=== PATIENT | female | born 1945 | race Caucasian/White ===

== ENCOUNTER → 2023-06-23 10:29 | Outpatient (CLI) | payer MEDICARE, SELFPAY | PROVIDERS: PCP Family Medicine; Visit Provider Physician Assistant | DX: S81.802A Unspecified open wound, left lower leg, initial encounter (principal) | CPT/HCPCS: 87070; 87075; 87077; 87147; 87186; 87205 ==

== ENCOUNTER → 2023-07-05 16:12 | Outpatient (CLI) | payer MEDICARE, SELFPAY | PROVIDERS: PCP Family Medicine; Visit Provider Physician Assistant | DX: S81.802A Unspecified open wound, left lower leg, initial encounter (principal) | CPT/HCPCS: 87070; 87075; 87205 ==

== ENCOUNTER → 2023-07-08 08:36 | Outpatient (CLI) | payer MEDICARE, SELFPAY | PROVIDERS: PCP Family Medicine; Referring Provider Physician Assistant; Visit Provider Physician Assistant | DX: L97.929 Non-pressure chronic ulcer of unspecified part of left lower leg with unspecified severity (principal); Z85.828 Personal history of other malignant neoplasm of skin; S81.802A Unspecified open wound, left lower leg, initial encounter; L53.9 Erythematous condition, unspecified; I10 Essential (primary) hypertension; L63.9 Alopecia areata, unspecified | CPT/HCPCS: 11042; 99204; 99213 ==

== ENCOUNTER → 2023-07-09 08:47 | Outpatient (CLI) | payer MEDICARE, SELFPAY ==
[2023-07-09 10:01] LABS: HEMOLYSIS < 15 (0-50); Iron 147 ug/dL (37-170)
[2023-07-09 10:12] LABS: Percent Iron Saturation 47 % (15-50); Total Iron Binding Capacity 313 ug/dL (265-497); Transferrin 275 mg/dL (206-381)
[2023-07-09 10:15] LABS: Rheumatoid Factor < 8.6 IU/mL (<12.0)
[2023-07-13 15:08] LABS: ANA Screen, IFA Negative (.)
[2023-07-13 16:40] LABS: Antimyeloperoxidase Antibodies <0.2 units (0.0-0.9); Antiproteinase 3 Antibodies <0.2 units (0.0-0.9); Cytoplasmic C-ANCA <1:20 titer (Neg:<1:20); Perinuclear P-ANCA <1:20 titer (Neg:<1:20)
== END ==
PROVIDERS: PCP Family Medicine; Referring Provider Family Medicine; Visit Provider Family Medicine
DX: L98.9 Disorder of the skin and subcutaneous tissue, unspecified (principal); R23.3 Spontaneous ecchymoses
CPT/HCPCS: 36415; 83540; 83550; 86038; 86256; 86430

== ENCOUNTER → 2023-07-15 09:07 | Outpatient (CLI) | payer MEDICARE, SELFPAY ==
--- NOTE | 2023-07-15 09:08 | DI.US.S_ITS ---
PROCEDURE: US ARTERIAL DUPLEX LE BI INDICATIONS: CHRONIC NON-HEALING WOUND TECHNIQUE: Color and pulse Doppler interrogation was performed of both lower extremity arterial systems, with image documentation. COMPARISON: None. FINDINGS: Right lower extremity: Common femoral artery: 240 cm/sec, with triphasic flow. Deep femoral artery: 107 cm/sec, with biphasic flow. Proximal superficial femoral artery: 138 cm/sec, with biphasic flow. Mid superficial femoral artery: 132 cm/sec, with biphasic flow. Distal superficial femoral artery: 98 cm/sec, with biphasic flow. Popliteal artery: 77 cm/sec, with biphasic flow. Posterior tibial artery: 67 cm/sec, with biphasic flow. Anterior tibial artery/dorsalis pedis: 85 cm/sec, with biphasic flow. Saleh-scale imaging description: Mild diffuse plaque. Left lower extremity: Common femoral artery: 218 cm/sec, with biphasic flow. Deep femoral artery: 170 cm/sec, with monophasic flow. Proximal superficial femoral artery: 134 cm/sec, with monophasic flow. Mid superficial femoral artery: 119 cm/sec, with biphasic flow. Distal superficial femoral artery: 93 cm/sec, with biphasic flow. Popliteal artery: 57 cm/sec, with biphasic flow. Posterior tibial artery: 94 cm/sec, with biphasic flow. Anterior tibial artery/dorsalis pedis: 39 cm/sec, with biphasic flow. Saleh-scale imaging description: Mild diffuse plaque. IMPRESSION: Mild diffuse plaque. No significant stenosis by imaging or velocity/waveform criteria. Dictated by: Jordan Harris M.D. on 07/15/2023 at 15:08 Approved by: Jordan Harris M.D. on 07/15/2023 at 15:11
== END ==
PROVIDERS: PCP Family Medicine; Referring Provider Physician Assistant; Visit Provider Physician Assistant
DX: S81.802A Unspecified open wound, left lower leg, initial encounter (principal); I70.203 Unspecified atherosclerosis of native arteries of extremities, bilateral legs
CPT/HCPCS: 93925

== ENCOUNTER → 2023-07-15 11:44 | Outpatient (CLI) | payer MEDICARE, SELFPAY | PROVIDERS: PCP Family Medicine; Referring Provider Physician Assistant; Visit Provider Physician Assistant | DX: S81.802A Unspecified open wound, left lower leg, initial encounter (principal); I70.203 Unspecified atherosclerosis of native arteries of extremities, bilateral legs; L97.929 Non-pressure chronic ulcer of unspecified part of left lower leg with unspecified severity; Z85.828 Personal history of other malignant neoplasm of skin; L53.9 Erythematous condition, unspecified; I10 Essential (primary) hypertension; F41.9 Anxiety disorder, unspecified; L63.9 Alopecia areata, unspecified; L20.83 Infantile (acute) (chronic) eczema | CPT/HCPCS: 11042; 93925; 99214 ==

== ENCOUNTER → 2023-07-22 10:53 | Outpatient (CLI) | payer MEDICARE, SELFPAY | LOC: WC 10:55 | PROVIDERS: PCP Family Medicine; Referring Provider Physician Assistant; Visit Provider Physician Assistant | DX: S81.802A Unspecified open wound, left lower leg, initial encounter (principal); I10 Essential (primary) hypertension | CPT/HCPCS: 97597; 99214 ==

== ENCOUNTER → 2023-07-29 13:04 | Outpatient (CLI) | payer MEDICARE, SELFPAY | PROVIDERS: PCP Family Medicine; Referring Provider Physician Assistant; Visit Provider Physician Assistant | DX: S81.802A Unspecified open wound, left lower leg, initial encounter (principal); I10 Essential (primary) hypertension; L53.9 Erythematous condition, unspecified | CPT/HCPCS: 11042; 99214 ==

== ENCOUNTER → 2023-08-12 14:03 | Outpatient (CLI) | payer MEDICARE, SELFPAY | LOC: WC 14:05 | PROVIDERS: PCP Family Medicine; Referring Provider Physician Assistant; Visit Provider Physician Assistant | DX: S81.802A Unspecified open wound, left lower leg, initial encounter (principal); L08.89 Other specified local infections of the skin and subcutaneous tissue; L53.9 Erythematous condition, unspecified; I10 Essential (primary) hypertension | CPT/HCPCS: 11042; 87070; 87075; 87077; 87147; 87186; 87205; 99213; 99214 ==

== ENCOUNTER → 2023-08-19 14:13 | Outpatient (CLI) | payer MEDICARE, SELFPAY | LOC: WC 14:22 | PROVIDERS: PCP Family Medicine; Referring Provider Physician Assistant; Visit Provider Physician Assistant | DX: S81.802D Unspecified open wound, left lower leg, subsequent encounter (principal); I10 Essential (primary) hypertension | CPT/HCPCS: 99212; 99213 ==

== ENCOUNTER → 2023-08-26 15:44 | Outpatient (CLI) | payer MEDICARE, SELFPAY | PROVIDERS: PCP Family Medicine; Referring Provider Physician Assistant; Visit Provider Surgery | DX: S81.802D Unspecified open wound, left lower leg, subsequent encounter (principal) | CPT/HCPCS: 99212 ==

== ENCOUNTER 2023-12-13 13:45 | Outpatient (RCR) | payer MEDICARE, SELFPAY ==
--- NOTE | 2023-12-06 12:00 | PT.OIE ---
Current Diagnoses Scoliosis, unspecified (12/06/23) Past Medical History (Last Reviewed 05/10/23 @ 17:55 by Veto Hemphill DO) Actinic keratosis Alopecia Anxiety Asthma Cataracts, bilateral Chicken pox Colon polyps Eczema Foot pain Fractures Hypertension Measles Osteopenia Osteoporosis Recurrent sinusitis Scoliosis Skin cancer Tinnitus Vertigo Vision disorder Past Surgical History (Last Reviewed 05/10/23 @ 17:55 by Veto Hemphill DO) Anesthesia H/O right wrist surgery History of breast biopsy History of cataract removal with insertion of prosthetic lens History of tonsillectomy Status post Mohs surgery Visit Care Team Role Provider Type Toshia Moon DO Attending Provider Physician Family Provider Primary Care Provider Referring Provider Specialty: [facility] Practice Address: [address] [place] [address], [address], [facility] Email: [email or web address] Physical Therapy Initial Evaluation PT-OP-A Visit Information Start: 12/06/23 14:57 Freq: Status: Active Protocol: Document 12/06/23 11:15 DCW (Rec: 12/06/23 15:05 DCW [id number]) Out-Patient Physical Therapy Visit Information Visit Information Visit Type Initial Evaluation Visit Start Time 11:15 Visit Stop Time 12:00 Visit Number 1 Number of DIAMOND WHEEL EDGER Visits 0 Evaluation Information Evaluation Date 12/06/23 PT-OP-B Current Condition Start: 12/06/23 14:57 Freq: Status: Active Protocol: Document 12/06/23 11:15 DCW (Rec: 12/07/23 10:21 DCW [id number]) Current Condition History of Current Condition Current Complaints Low/mid back tightness secondary to scoliosis History of Current Condition Pt is a 78 year old female presenting with a long- standing history of back pain secondary to scoliosis. Pt admits that unless she is actively thinking about it, she will begin to lean to the right, especially when she is stressed and gets tight and sore. Pt has had exercises to help in the past, but over the years has lost track of her program and forgets to do them . Pt also admits she is worried that her curvature will worsen as she ages. Typically will wake up with increased pain, especially if she sleeps on her left side. PT-OP-C Subjective Start: 12/06/23 14:57 Freq: Status: Active Protocol: Document 12/06/23 11:15 DCW (Rec: 12/06/23 15:05 DCW [id number]) OP-PT Subjective Patient Comments Patient Comments I'm almost 79, and I used to run marathons. I'm used to everything hurting all the time. Patient Questionnaires Oswestry Low Back Index Oswestry Score 1250 = 24% PT-OP-F Manual Assessment Start: 12/06/23 14:57 Freq: Status: Active Protocol: Document 12/06/23 11:15 DCW (Rec: 12/06/23 15:05 DCW [id number]) Manual Assessments Soft Tissue Assessment Soft Tissue Mobility Assessment right lumbar paraspinal, left thoracic paraspinal tightness PT-OP-J Posture/Palpation/Skin Start: 12/06/23 14:57 Freq: Status: Active Protocol: Document 12/06/23 11:15 DCW (Rec: 12/06/23 15:05 DCW [id number]) Posture Evaluation Position Sitting Evaluation View Posterior T-Spine Posture Fixed Scoliosis on (L) L-Spine Posture Fixed Scoliosis on (R) PT-OP-K Range of Motion Start: 12/06/23 14:57 Freq: Status: Active Protocol: Document 12/06/23 11:15 DCW (Rec: 12/06/23 15:05 DCW [id number]) Lumbar Spine Range of Motion Lumbar Spine Active Degrees Testing Position Standing Flexion 35 Extension 5 Lateral Flexion Left 62 Lateral Flexion Right 56 ROM Limitations Bony Restriction Comments Lateral flexion measured in cm from floor to fingertips PT-OP-Q Treatments Start: 12/06/23 14:57 Freq: Status: Active Protocol: Document 12/06/23 11:15 DCW (Rec: 12/06/23 15:05 DCW [id number]) Therapeutic Exercises Sidelying Exercises Open Book Sidelying Exercise Name Open Book Comments HEP Sitting Exercises Trunk Flexion Sitting Exercise Name Seated Trunk Flexion Comments HEP Standing Exercises Pallof Press Standing Exercise Name Pallof Press Side bilateral Resistance Lv 2 Comments HEP PT-OP-T Assessment and Plan Start: 12/06/23 14:57 Freq: Status: Active Protocol: Document 12/06/23 11:15 DCW (Rec: 12/07/23 10:21 DCW [id number]) Physical Therapy Assessment Rehab Potential Rehabilitation Potential Good Evaluation Complexity Number of Personal Factors/Comorbidities 3 or More Number of Body Systems Impaired 3 Clinical Presentation at Evaluation Evolving Impairments Impairments Functional Activities, Functional Mobility,Pain, Posture,ROM,Strength,Tone Goals Two Impairment Lumbar flexion limited to 35? Skilled Nursing Goal (LTG) Pt to exhibit improved lumbar flexion by at least 15? to 50? in order to demonstrate improved flexibility and increased functional mobility LTG Duration 02/06/24 One Impairment Pt does not have an appropriate home exercise program Short Term Goal (STG) Pt to be independent and compliant with an appropriate HEP STG Duration 01/07/24 Assessment Summary Assessment Pt presents with signs and symptoms consistent with referring diagnosis of scoliosis. Scoliotic S- curvature results in limitation in thoracolumbar ROM, increased muscle tone/ muscle weakness, core weakness , and decreased tolerance to standing secondary to soreness . Pt will likely benefit from skilled therapeutic intervention focusing on getting a regular routine focusing on improving flexibility, increasing core strength, and improving activity/standing tolerance. Physical Therapy Plan Frequency and Duration Frequency of Treatment 2x/Week Plan of Care Start Date 12/06/23 Plan of Care End Date 02/05/24 Therapeutic Interventions Therapeutic Interventions Home Exercise Program,Joint Mobilizations,Manual Therapy, Neuromuscular Re-education, Patient/Caregiver Education, Self-Care/Home Management,Soft Tissue Mobilization, Therapeutic Activities, Therapeutic Exercises Modalities Cold Pack/Ice Massage,Electric Stimulation,Hot Packs, Ultrasound Next Visit Focus/Plan Next Note Type Treatment Note Next Visit Plan Back/core strengthening, flexibility
--- NOTE | 2023-12-06 12:00 | PT.OPPOC ---
Physical, Occupational & Speech Therapy At [facility] Current Diagnoses Scoliosis, unspecified (12/06/23) Visit Care Team Role Provider Type Toshia Moon DO Attending Provider Physician Family Provider Primary Care Provider Referring Provider Specialty: Family Practice Address: [address] [place] [address], [address], [facility] Email: [email or web address] Plan Of Care PT-OP-T Assessment and Plan Start: 12/06/23 14:57 Freq: Status: Active Protocol: Document 12/06/23 11:15 DCW (Rec: 12/07/23 10:21 DCW [id number]) Physical Therapy Assessment Rehab Potential Rehabilitation Potential Good Evaluation Complexity Number of Personal Factors/Comorbidities 3 or More Number of Body Systems Impaired 3 Clinical Presentation at Evaluation Evolving Impairments Impairments Functional Activities, Functional Mobility,Pain, Posture,ROM,Strength,Tone Goals Two Impairment Lumbar flexion limited to 35? Coding Specialist Home Health Goal (LTG) Pt to exhibit improved lumbar flexion by at least 15? to 50? in order to demonstrate improved flexibility and increased functional mobility LTG Duration 02/06/24 One Impairment Pt does not have an appropriate home exercise program Short Term Goal (STG) Pt to be independent and compliant with an appropriate HEP STG Duration 01/07/24 Assessment Summary Assessment Pt presents with signs and symptoms consistent with referring diagnosis of scoliosis. Scoliotic S- curvature results in limitation in thoracolumbar ROM, increased muscle tone/ muscle weakness, core weakness , and decreased tolerance to standing secondary to soreness . Pt will likely benefit from skilled therapeutic intervention focusing on getting a regular routine focusing on improving flexibility, increasing core strength, and improving activity/standing tolerance. Physical Therapy Plan Frequency and Duration Frequency of Treatment 2x/Week Plan of Care Start Date 12/06/23 Plan of Care End Date 02/05/24 Therapeutic Interventions Therapeutic Interventions Home Exercise Program,Joint Mobilizations,Manual Therapy, Neuromuscular Re-education, Patient/Caregiver Education, Self-Care/Home Management,Soft Tissue Mobilization, Therapeutic Activities, Therapeutic Exercises Modalities Cold Pack/Ice Massage,Electric Stimulation,Hot Packs, Ultrasound Next Visit Focus/Plan Next Note Type Treatment Note Next Visit Plan Back/core strengthening, flexibility Plan of Care Dates Plan of Care Start Date 12/06/23 Plan of Care End Date 02/05/24 Electronically Signed by: Jose Luis Prince, PT 12/07/23 1022 If you are in agreement with this Plan of Care, please return a signed and dated copy. I have reviewed this Plan of Care and certify that the skilled therapy services above are required to meet the patient?s needs. Physician Signature Date Printed Name and Credentials Clinical Instructor Signature Printed Name and Credentials
--- NOTE | 2023-12-08 16:01 | PT.OTN ---
Current Diagnoses Scoliosis, unspecified (12/08/23) Physical Therapy Treatment Note PT-OP-A Visit Information Start: 12/06/23 14:57 Freq: Status: Active Protocol: Document 12/08/23 15:15 DCW (Rec: 12/08/23 16:01 DCW [id number]) Out-Patient Physical Therapy Visit Information Visit Information Visit Type Treatment Note Visit Start Time 15:15 Visit Stop Time 16:00 Visit Number 2 Number of VOCAL MUSIC TEACHER Visits 0 Evaluation Information Evaluation Date 12/06/23 PT-OP-B Current Condition Start: 12/06/23 14:57 Freq: Status: Active Protocol: Document 12/06/23 11:15 DCW (Rec: 12/07/23 10:21 DCW [id number]) Current Condition History of Current Condition Current Complaints Low/mid back tightness secondary to scoliosis History of Current Condition Pt is a 78 year old female presenting with a long- standing history of back pain secondary to scoliosis. Pt admits that unless she is actively thinking about it, she will begin to lean to the right, especially when she is stressed and gets tight and sore. Pt has had exercises to help in the past, but over the years has lost track of her program and forgets to do them . Pt also admits she is worried that her curvature will worsen as she ages. Typically will wake up with increased pain, especially if she sleeps on her left side. PT-OP-C Subjective Start: 12/06/23 14:57 Freq: Status: Active Protocol: Document 12/08/23 15:15 DCW (Rec: 12/08/23 16:01 DCW [id number]) OP-PT Subjective Patient Comments Patient Comments I had a good soreness after doing those exercises. PT-OP-F Manual Assessment Start: 12/06/23 14:57 Freq: Status: Active Protocol: Document 12/06/23 11:15 DCW (Rec: 12/06/23 15:05 DCW [id number]) Manual Assessments Soft Tissue Assessment Soft Tissue Mobility Assessment right lumbar paraspinal, left thoracic paraspinal tightness PT-OP-J Posture/Palpation/Skin Start: 12/06/23 14:57 Freq: Status: Active Protocol: Document 12/06/23 11:15 DCW (Rec: 12/06/23 15:05 DCW [id number]) Posture Evaluation Position Sitting Evaluation View Posterior T-Spine Posture Fixed Scoliosis on (L) L-Spine Posture Fixed Scoliosis on (R) PT-OP-K Range of Motion Start: 12/06/23 14:57 Freq: Status: Active Protocol: Document 12/06/23 11:15 DCW (Rec: 12/06/23 15:05 DCW [id number]) Lumbar Spine Range of Motion Lumbar Spine Active Degrees Testing Position Standing Flexion 35 Extension 5 Lateral Flexion Left 62 Lateral Flexion Right 56 ROM Limitations Bony Restriction Comments Lateral flexion measured in cm from floor to fingertips PT-OP-Q Treatments Start: 12/06/23 14:57 Freq: Status: Active Protocol: Document 12/08/23 15:15 DCW (Rec: 12/08/23 16:01 DCW [id number]) Gym Equipment Cable Column (Body Solid) Trunk Ext Details Trunk Extension Resistance 10# Therapeutic Ball Pelvic Circles Exercise Details Pelvic tilts/circles Ball Size/Color Green - 65 cm Body Position Sitting Therapeutic Exercises Standing Exercises Hip Hiking Standing Exercise Name Hip Hiking Side bilateral Equipment Used 6 step RDL Standing Exercise Name RDL Equipment Used PVC Self-Care/Home Management Treatment Education Other Education Expectations for treatment, discussion of body mechanics and exercise form, HEP compliance PT-OP-T Assessment and Plan Start: 12/06/23 14:57 Freq: Status: Active Protocol: Document 12/08/23 15:15 DCW (Rec: 12/08/23 16:01 DCW [id number]) Physical Therapy Assessment Impairments Impairments Functional Activities, Functional Mobility,Pain, Posture,ROM,Strength,Tone Goals Two Impairment Lumbar flexion limited to 35? Usp Goal (LTG) Pt to exhibit improved lumbar flexion by at least 15? to 50? in order to demonstrate improved flexibility and increased functional mobility LTG Duration 02/06/24 One Impairment Pt does not have an appropriate home exercise program Short Term Goal (STG) Pt to be independent and compliant with an appropriate HEP STG Duration 01/07/24 Assessment Summary Assessment Pt had many questions, focused on increasing lumbar/pelvic mobility as tolerated, postural improvement. Work on core and hip strengthening, potentially add STM/ flexibility. Physical Therapy Plan Frequency and Duration Frequency of Treatment 2x/Week Plan of Care Start Date 12/06/23 Plan of Care End Date 02/05/24 Therapeutic Interventions Therapeutic Interventions Home Exercise Program,Joint Mobilizations,Manual Therapy, Neuromuscular Re-education, Patient/Caregiver Education, Self-Care/Home Management,Soft Tissue Mobilization, Therapeutic Activities, Therapeutic Exercises Modalities Cold Pack/Ice Massage,Electric Stimulation,Hot Packs, Ultrasound Next Visit Focus/Plan Next Note Type Treatment Note Next Visit Plan Back/core strengthening, flexibility
--- NOTE | 2023-12-13 14:20 | PT.OTN ---
Current Diagnoses Scoliosis, unspecified (12/13/23) Physical Therapy Treatment Note PT-OP-A Visit Information Start: 12/06/23 14:57 Freq: Status: Active Protocol: Document 12/13/23 13:45 DCW (Rec: 12/13/23 14:20 DCW [id number]) Out-Patient Physical Therapy Visit Information Visit Information Visit Type Discharge Summary Visit Start Time 13:45 Visit Stop Time 14:15 Visit Number 3 Number of NEON SIGN WORKER Visits 0 Evaluation Information Evaluation Date 12/06/23 PT-OP-B Current Condition Start: 12/06/23 14:57 Freq: Status: Active Protocol: Document 12/06/23 11:15 DCW (Rec: 12/07/23 10:21 DCW [id number]) Current Condition History of Current Condition Current Complaints Low/mid back tightness secondary to scoliosis History of Current Condition Pt is a 78 year old female presenting with a long- standing history of back pain secondary to scoliosis. Pt admits that unless she is actively thinking about it, she will begin to lean to the right, especially when she is stressed and gets tight and sore. Pt has had exercises to help in the past, but over the years has lost track of her program and forgets to do them . Pt also admits she is worried that her curvature will worsen as she ages. Typically will wake up with increased pain, especially if she sleeps on her left side. PT-OP-C Subjective Start: 12/06/23 14:57 Freq: Status: Active Protocol: Document 12/13/23 13:45 DCW (Rec: 12/13/23 14:20 DCW [id number]) OP-PT Subjective Patient Comments Patient Comments Pt admits she doesn't want too much of an HEP, or I'll end up not doing anything. PT-OP-F Manual Assessment Start: 12/06/23 14:57 Freq: Status: Active Protocol: Document 12/06/23 11:15 DCW (Rec: 12/06/23 15:05 DCW [id number]) Manual Assessments Soft Tissue Assessment Soft Tissue Mobility Assessment right lumbar paraspinal, left thoracic paraspinal tightness PT-OP-J Posture/Palpation/Skin Start: 12/06/23 14:57 Freq: Status: Active Protocol: Document 12/06/23 11:15 DCW (Rec: 12/06/23 15:05 DCW [id number]) Posture Evaluation Position Sitting Evaluation View Posterior T-Spine Posture Fixed Scoliosis on (L) L-Spine Posture Fixed Scoliosis on (R) PT-OP-K Range of Motion Start: 12/06/23 14:57 Freq: Status: Active Protocol: Document 12/06/23 11:15 DCW (Rec: 12/06/23 15:05 DCW [id number]) Lumbar Spine Range of Motion Lumbar Spine Active Degrees Testing Position Standing Flexion 35 Extension 5 Lateral Flexion Left 62 Lateral Flexion Right 56 ROM Limitations Bony Restriction Comments Lateral flexion measured in cm from floor to fingertips PT-OP-Q Treatments Start: 12/06/23 14:57 Freq: Status: Active Protocol: Document 12/13/23 13:45 DCW (Rec: 12/13/23 14:20 DCW [id number]) Manual Therapy Treatment Soft Tissue Mobilization Thoracolumbar paraspinals Body Location Thoracolumbar paraspinals Mobilization Type Sustained Pressure,Trigger Point Release Body Position Sitting Self-Care/Home Management Treatment Education Other Education HEP review and compliance PT-OP-T Assessment and Plan Start: 12/06/23 14:57 Freq: Status: Active Protocol: Document 12/13/23 13:45 DCW (Rec: 12/13/23 14:20 DCW [id number]) Physical Therapy Assessment Impairments Impairments Functional Activities, Functional Mobility,Pain, Posture,ROM,Strength,Tone Goals Two Impairment Lumbar flexion limited to 35? Retirement Goal (LTG) Pt to exhibit improved lumbar flexion by at least 15? to 50? in order to demonstrate improved flexibility and increased functional mobility LTG Duration 02/06/24 One Impairment Pt does not have an appropriate home exercise program Short Term Goal (STG) Pt to be independent and compliant with an appropriate HEP STG Duration Met Assessment Summary Assessment Pt feels comfortable with discharge to independent HEP at this time. Agreeable to independent compliance with home program. Pt plans to set up appointments with a massage therapist, and continue with stretching and strengthening to limit effects of scoliosis. Physical Therapy Plan Frequency and Duration Frequency of Treatment 2x/Week Plan of Care Start Date 12/06/23 Plan of Care End Date 02/05/24 Therapeutic Interventions Therapeutic Interventions Home Exercise Program,Joint Mobilizations,Manual Therapy, Neuromuscular Re-education, Patient/Caregiver Education, Self-Care/Home Management,Soft Tissue Mobilization, Therapeutic Activities, Therapeutic Exercises Modalities Cold Pack/Ice Massage,Electric Stimulation,Hot Packs, Ultrasound Discharge Physical Therapy Discharge Reasons Patient Request Next Visit Focus/Plan Next Note Type Treatment Note
== END 2023-12-15 15:17 | disposition home or self-care (01) ==
LOC: PHYS 13:45
PROVIDERS: Family Provider Family Medicine; PCP Family Medicine; Referring Provider Family Medicine; Visit Provider Family Medicine
DX: M41.9 Scoliosis, unspecified (principal)
CPT/HCPCS: 97110; 97140; 97162; 97535

== ENCOUNTER → 2024-01-23 07:13 | Outpatient (CLI) | payer MEDICARE, SELFPAY ==
[2024-01-23 08:14] LABS: Add Manual Diff / Slide Review NO; Basophils Absolute Auto 0 /uL (0-100); Basophils Percent Auto 0.6 % (0-2); Eosinophils Absolute Auto 300 /uL (0-450); Eosinophils Percent Auto 5.6 % (2-4); Hematocrit 40.5 % (36-46); Hemoglobin 13.8 g/dL (12.0-16.0); Lymphocytes Absolute Auto 1500 /uL (1100-4500); Lymphocytes Percent Auto 29.6 % (25-40); Mean Corpuscular HGB Conc 34.1 % (30-36); Mean Corpuscular Hemoglobin 30.2 PG (26-34); Mean Corpuscular Volume 88.6 fL (80-100); Monocytes Absolute Auto 400 /uL (0-900); Monocytes Percent Auto 8.7 % (3-14); Neutrophils Absolute Auto 2800 /uL (1500-7000); Neutrophils Percent Auto 55.5 % (50-75); Platelet Count 290 X10^3/uL (150-400); Red Blood Cell Count 4.57 X10^6/uL (4.0-5.2); Red Cell Distribution Width 13.1 % (11.6-14.8)
[2024-01-23 08:23] LABS: Hemoglobin A1C% w Est Avg Glu 5.5 % (4.0-6.0)
[2024-01-23 08:30] LABS: Alanine Aminotransferase 16 IU/L (<35); Albumin 4.4 g/dL (3.5-5.0); Albumin Globulin Ratio 1.3 (1.0-2.8); Alkaline Phosphatase 65 U/L (38-126); Aspartate Aminotransferase 30 IU/L (14-36); Bilirubin Total 0.7 mg/dL (0.2-1.3); Blood Urea Nitrogen 20 mg/dL (7-17); Calcium 9.4 mg/dL (8.4-10.2); Carbon Dioxide 29 mmol/L (22-32); Chloride 106 mmol/L (98-107); Cholesterol 200 mg/dL (140-199); Estimated Glomerular Filt Rate > 60 mL/min (>60); Globulin 3.3 g/dL (1.7-4.1); Glucose 98 mg/dL (80-110); HDL Cholesterol 71 mg/dL (40-60); HEMOLYSIS < 15 (0-50); LDL Cholesterol Calculated 117 mg/dL (<100); Potassium 5.7 mmol/L (3.4-5.1); Sodium 140 mmol/L (137-145); Total Protein 7.7 g/dL (6.3-8.2); Triglycerides 60 mg/dL (35-150)
[2024-01-23 08:43] LABS: Free T3, Triiodothyronine Free 3.19 pg/mL (2.77-5.27)
[2024-01-23 08:49] LABS: Vitamin D 25 Hydroxy (D3) 30.3 ng/mL (30.0-100.0)
[2024-01-23 08:56] LABS: TSH w/ Reflex to FT4 3.99 uIU/mL (0.47-4.68)
== END ==
LOC: LAB 07:14
PROVIDERS: Family Provider Family Medicine; PCP Family Medicine; Referring Provider Family Medicine; Visit Provider Family Medicine
DX: E03.8 Other specified hypothyroidism (principal); R73.03 Prediabetes; I10 Essential (primary) hypertension; M25.471 Effusion, right ankle; M25.472 Effusion, left ankle; M25.474 Effusion, right foot; M25.475 Effusion, left foot; M81.0 Age-related osteoporosis without current pathological fracture; M85.80 Other specified disorders of bone density and structure, unspecified site; Z78.0 Asymptomatic menopausal state
CPT/HCPCS: 36415; 80053; 80061; 82306; 83036; 84443; 84481; 85025

== ENCOUNTER → 2024-02-06 08:01 | Outpatient (CLI) | payer MEDICARE, SELFPAY ==
--- NOTE | 2024-02-06 08:03 | DI.ECHO.S_ITS ---
[facility] : : [address] : : [place] : : [id number] : : Phone: [phone] Echocardiogram Report + + :Name: LIBORIO PANTOJA Study Date: 02/06/2024 Height: 67 in : :[facility] ReadingLocation: Weight: 133 lb : : Gender: Female BSA: 1.7 m2 : :: 1945 Age: 78 yrs BP: 182/89 mmHg: :Reason For Study: PALPITATIONS : :Ordering Physician: SOFY, : :JOVAN Performed By: Rhett Rhoades : :Referring: JOVAN GOETZ : + + Interpretation Summary 1. The left ventricular contractility is normal. Estimated ejection fraction is greater than 60% without segmental wall motion abnormalities. No LVH. Normal diastolic function. 2. The right ventricular contractility is normal. 3. All cardiac chambers are of normal size. 4. No significant valvular abnormalities noted. 5. No obvious intracardiac shunts. 6. No obvious ventricular masses nor thrombi. 7. No hemodynamically significant pericardial effusion. Conclusion: Normal biventricular function with no significant structural abnormalities. Procedure: A two-dimensional transthoracic echocardiogram with color flow and Doppler was performed. The study quality was technically adequate. There is no prior echocardiogram noted for this patient. The patient was in sinus rhythm with heart rates between 68-86 bpm during the exam. Left Ventricle: The left ventricle is normal in size and wall thickness. The ejection fraction is estimated to be 60-65%. Right Ventricle: The right ventricle is normal size. The right ventricular systolic function is normal. Atria: The left atrial size is normal. Right atrial size is normal. The interatrial septum grossly appears intact with no obvious evidence for an atrial septal defect. Mitral Valve: The mitral valve is normal. There is no mitral valve stenosis. There is trace mitral regurgitation. Aortic Valve: The aortic valve is trileaflet. There is no aortic valve stenosis. No aortic regurgitation is present. Tricuspid Valve: The tricuspid valve is normal. There is no tricuspid stenosis. No tricuspid regurgitation. Pulmonic Valve: The pulmonic valve is not well visualized. Great Vessels: The aortic root is normal size. The dimensions of the ascending aorta are normal. The IVC is of normal diameter and collapses greater than 50% with a sniff. This suggests a low right atrial pressure of 3 mm Hg. Pericardium/ Pleura There is no pericardial effusion. There is no pleural effusion. MMode/2D Measurements & Calculations LVIDd: 4.9 cm LVOT diam: 2.0 cm LVIDs: 3.7 cm Ao root diam: 3.2 cm FS: 25.3 % asc Aorta Diam: 2.7 cm IVSd: 1.0 cm Ao Arch Diam (Prox Trans): 1.8 cm LVPWd: 0.77 cm LV weinberg. diameter/BSA (cm/m^2): 2.9 LV sys. diameter/BSA (cm/m^2): 2.1 LA A2 area: 12.9 cm2 RA long axis: 4.0 cm LA A4 area: 19.8 cm2 RA area: 12.4 cm2 LA length (vol): 5.5 cm RA vol: 32.3 ml LA vol: 39.4 ml RA : 19.0 ml/m2 LA vol index: 23.2 ml/m2 IVC diam: 1.6 cm RVD1 (basal): 3.2 cm RVD2 (mid): 2.5 cm TAPSE: 2.8 cm Doppler Measurements & Calculations Ao V2 max: 133.7 cm/sec LVOT Max Travis: 103.1 cm/sec Ao V2 mean: 101.3 cm/sec LV V1 max P.3 mmHg Ao max P.1 mmHg LV V1 VTI: 24.6 cm Ao mean P.4 mmHg TAB(I,D): 2.4 cm2 Ao V2 VTI: 32.4 cm TAB(V,D): 2.4 cm2 sev ratio: 0.76 TAB indexed to BSA (cm^2/m^2): 1.4 MV E max travis: 65.0 cm/sec TR max travis: 271.6 cm/sec MV A max travis: 65.5 cm/sec TR max P.5 mmHg MV E/A: 0.99 Med Peak E' Travis: 7.7 cm/sec E/E' med: 8.4 Lat Peak E' Travis: 9.7 cm/sec E/E' lat: 6.7 E/e' average: 7.6 MV dec time: 0.16 sec SV(LVOT): 77.4 ml Reading Physician:
== END ==
PROVIDERS: Family Provider Family Medicine; PCP Family Medicine; Referring Provider Family Medicine; Visit Provider Family Medicine
DX: E03.8 Other specified hypothyroidism (principal); R00.2 Palpitations; I49.1 Atrial premature depolarization
CPT/HCPCS: 93306

== ENCOUNTER → 2024-04-17 07:36 | Outpatient (CLI) | payer MEDICARE, SELFPAY ==
[2024-04-17 09:22] LABS: COVID-19 CEPHEID 4-PLEX PCR Negative (Negative); Influenza A - CEPHEID Flu A NEGATIVE (NEGATIVE); Influenza B - CEPHEID Flu B NEGATIVE (NEGATIVE); Respiratory Syncytial Virus Negative (Negative)
== END ==
PROVIDERS: Family Provider Family Medicine; PCP Family Medicine; Visit Provider Physician Assistant Surgical
DX: R51.9 Headache, unspecified (principal)
CPT/HCPCS: 0241U

== ENCOUNTER → 2024-05-02 10:40 | Outpatient (CLI) | payer MEDICARE, SELFPAY ==
--- NOTE | 2024-05-02 | DI.MG.S_ITS ---
BILATERAL DIGITAL SCREENING MAMMOGRAM 3D/2D WITH CAD: 05/02/2024 CLINICAL: Routine screening. Comparison is made to exams dated: 12/01/2022 mammogram, 06/23/2021 mammogram, and 04/28/2020 mammogram - outside location. The breasts are heterogeneously dense, which may obscure small masses (category c / 51-75% glandular tissue). Current study was also evaluated with a Computer Aided Detection (CAD) system. There are benign calcifications in both breasts. There also are benign vascular calcifications in both breasts. No significant masses, calcifications, or other findings are seen in either breast. There has been no significant interval change. IMPRESSION: BENIGN There is no mammographic evidence of malignancy. A 1 year screening mammogram is recommended. Based on the Tyrer Cuzick model (a risk assessment model) the patient's lifetime risk is 8.1% and her 10 year risk is 0.0%. According to the ACR, ACS, and NCCN guidelines, an annual breast MRI exam along with mammogram is recommended if the patient's lifetime risk is 20% or greater. This exam was interpreted at Station ID: [id number]. NOTE: For mammograms, a report in lay terms will be sent to the patient. Approximately 15% of breast malignancies will not be visualized mammographically. In the management of a palpable breast mass, a negative mammogram must not discourage biopsy of a clinically suspicious lesion. Electronically Signed By: Tj brennan/[email or web address]:05/02/2024 17:37:59 letter sent: Normal Exam ACR BI-RADS Category 2: Benign
== END ==
PROVIDERS: Family Provider Family Medicine; PCP Family Medicine; Referring Provider Family Medicine; Visit Provider Family Medicine
DX: Z12.31 Encounter for screening mammogram for malignant neoplasm of breast (principal); R92.333 Mammographic heterogeneous density, bilateral breasts
CPT/HCPCS: 77063; 77067

== ENCOUNTER 2024-05-02 11:24 | Emergency (ER) | payer MEDICARE, SELFPAY ==
[2024-05-02 11:27] VITALS: BP 148/90; PULSE 98; RESP 20; TEMP 35.8; O2SAT 100; BMI 21.1
--- NOTE | 2024-05-02 11:31 | DI.RAD.S_ITS ---
PROCEDURE: XR SHOULDER RT MIN 2V INDICATIONS: fall/pain TECHNIQUE: 3 views of the shoulder were acquired. COMPARISON: None. FINDINGS: Bones: No fractures or dislocations. Tpaj-ec-pkjchryq acromioclavicular joint and glenohumeral joint osteoarthritic changes are seen. No suspicious bony lesions. Visualized ribs appear intact. Soft tissues: No suspicious soft tissue calcifications. IMPRESSION: No acute shoulder fracture or dislocation. 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 Dictated by: Jad Saeed M.D. on 05/02/2024 at 12:02 Approved by: Jad Saeed M.D. on 05/02/2024 at 12:03
--- NOTE | 2024-05-02 11:31 | DI.RAD.S_ITS ---
PROCEDURE: XR KNEE LT 3V INDICATIONS: fall/pain TECHNIQUE: 3 views of the knee were acquired. COMPARISON: None. FINDINGS: Bones: Acute transverse fracture through mid to inferior portion of patella is seen without significant displacement at fracture site. No other fracture or dislocation. No significant patellar subluxation. Mild tricompartmental osteoarthritis is seen. No suspicious bony lesions. Soft tissues: Moderate suprapatellar joint effusion. No suspicious soft tissue calcifications. IMPRESSION: Acute nondisplaced fracture involving mid to inferior portion of patella body. Small to moderate joint effusion. Dictated by: Jad Saeed M.D. on 05/02/2024 at 12:01 Approved by: Jad Saeed M.D. on 05/02/2024 at 12:02
--- NOTE | 2024-05-02 11:37 | ED_ITS ---
<Statement entered by Trey Fontaine, - 05/02/24 13:23> Dr. Fontaine: I was immediately available in the department for consultation. Documentation has been reviewed. I agree with assessment and plan. HPI - Fall General Chief Complaint: Fall Stated Complaint: fall, l knee/r arm injury Time Seen by Provider: 05/02/24 11:31 Source: patient Mode of arrival: Wheelchair History of Present Illness HPI Narrative: 79-year-old female accompanied by her presents today for a fall that occurred inside the hospital following her mammogram appointment. She was wearing Crocs, walking on the hallway floor lost her footing and fell on an outstretched hand. She impacted her left knee and then her right hand. Her main complaint is left knee pain and states she has pain with trying to straighten it. She has no prior knee or hip injuries. She is right-handed dominant. She has some discomfort in her right forearm but other than that she did not strike her head, there were no precipitating events, she takes no blood thinners or aspirin. History is significant for osteopenia, osteoarthritis, asthma, hypertension, vertigo, scoliosis, eczema, anxiety, right wrist surgery. No treatment tried. She presents in a wheelchair. All other systems are reviewed and are negative. Related Data Home Medications Medication Instructions Recorded Confirmed No Known Home Medications 04/17/24 04/17/24 Allergies Allergy/AdvReac Type Severity Reaction Status Date / Time cephalexin [From Keflex] Allergy Mild Verified 04/17/24 07:35 Sulfa (Sulfonamide Allergy Mild Verified 04/17/24 07:35 Antibiotics) Review of Systems Review of Systems Narrative: All other systems reviewed and are negative. Patient History Medical History Vision disorder Eczema Alopecia Actinic keratosis Asthma Anxiety Scoliosis Osteoporosis Osteopenia Fractures Foot pain Measles Chicken pox Vertigo Tinnitus Recurrent sinusitis Cataracts, bilateral Colon polyps Hypertension Skin cancer Surgical History Anesthesia History of cataract removal with insertion of prosthetic lens Status post Mohs surgery H/O right wrist surgery History of breast biopsy History of tonsillectomy Family History Mother Hypertension Hyperlipidemia Sister Diabetes mellitus Social History Smoking Status: Never smoker Smoking Status: Never smoker Substance Use Type: does not use Exam Initial Vital Signs Initial Vital Signs: Vital Signs Temperature 96.4 F L 05/02/24 11:27 Pulse Rate 98 H 05/02/24 11:27 Respiratory Rate 20 05/02/24 11:27 Blood Pressure 148/90 H 05/02/24 11:27 Pulse Oximetry 100 05/02/24 11:27 Oxygen Delivery Method Room Air 05/02/24 11:27 Reviewed and are normal except for elevated blood pressure reading today in a known hypertension patient Const Other: Smiling, seated in a wheelchair, no distress. Pleasantly conversing. Chest Other: Atraumatic. Resp Effort & Inspection: normal respiratory effort and able to speak in complete sentences Auscultation: clear to auscultation bilaterally, no rales, no rhonchi and no wheezes Cardio Rate: regular rate Rhythm: regular rhythm Back/Spine/Pelvis Other: No focal bony midline tenderness, atraumatic. Skin Other: No discoloration, soft tissue swelling noted over the anterior left knee. Skin intact. Tissues are warm to the touch. Neuro Other: Distal neuro vascular is intact both her upper and lower extremities. Sensory is intact. Extrem Right upper extremity: normal to inspection, full ROM, normal capillary refill and no joint enlargement; no edema Left lower extremity: knee (Anterior left knee swelling focal tenderness along the patella.) Details: tenderness, swelling, abnormal ROM and knee ligament exam normal; no deformity Other: No left knee joint line tenderness or posterior swelling or tenderness. Pain with active flexion. She has full extension. Distal neurovascular is grossly intact. No issues identified with the ankle foot or digits. Pelvic rock test is negative. No issues identified with the hip. She does have pain with weightbear on the left side. DP and PT pulses are present. No focal tenderness involving the right shoulder joint, clavicles are symmetric, no bony tenderness along the upper arm or forearm. No focal bony tenderness along the elbow joint, radial head, she has full active range of motion, she is able to supinate and pronate, she is tender along the connective tissues of the proximal forearm but no guarding, no swelling, no discoloration. She is negative for any snuffbox tenderness, pinch mechanism is intact. Radial ulnar and median nerves are intact able to perform the okay sign and letter C. strong radial and ulnar pulses. Course Course Course Narrative: Contact was made with the on-call orthopedist Dr. Polk, she is fitted with a long knee immobilizer, she feels comfortable, crutches are dispensed and training is given. Road tested and she is safe. She will contact Orthopedics for a follow up appointment. Orders Ordered: ED Orders 05/02/24 11:31 XR knee LT 3V Stat XR shoulder RT min 2V Stat 05/02/24 11:37 XR forearm RT 2V Stat Consultations Consultation #1: Contacted Dr. Brandon Polk's mobile phone which was answered by the intraoperative circulating nurse, advising of the radiologic findings in this 79-year-old female, he advised that he will look at the films and call me back once he is at a stopping point or completed with his current case. Call was returned by Jelena, the outside operator in the OR, who advised and confirmed left knee immobilizer, weightbear as tolerated and the patient will contact their office for a follow-up orthopedic appointment. Vital Signs Vital signs: Vital Signs - 8 hr 05/02/24 11:27 Temperature 96.4 F L Pulse Rate 98 H Respiratory Rate 20 Blood Pressure 148/90 H Pulse Oximetry 100 Oxygen Delivery Method Room Air MDM - Fall Imaging Data Extremity x-ray #1: My Impression: Nondisplaced left patella fracture, deferred to radiology official interpretation and report below. Radiologist's Impression: PROCEDURE: XR KNEE LT 3V INDICATIONS: fall/pain TECHNIQUE: 3 views of the knee were acquired. COMPARISON: None. FINDINGS: Bones: Acute transverse fracture through mid to inferior portion of patella is seen without significant displacement at fracture site. No other fracture or dislocation. No significant patellar subluxation. Mild tricompartmental osteoarthritis is seen. No suspicious bony lesions. Soft tissues: Moderate suprapatellar joint effusion. No suspicious soft tissue calcifications. IMPRESSION: Acute nondisplaced fracture involving mid to inferior portion of patella body. Small to moderate joint effusion. Dictated by: Jad Saeed M.D. on 05/02/2024 at 12:01 Approved by: Jad Saeed M.D. on 05/02/2024 at 12:02 Extremity x-ray #2: My Impression: Deferred to official radiology interpretation below. Radiologist's Impression: PROCEDURE: XR FOREARM RT 2V INDICATIONS: FOOSH TECHNIQUE: 2 views of the forearm were acquired. COMPARISON: None. FINDINGS: Bones: Post ORIF changes are noted in distal radius without evidence of hardware loosening or failure. There is suggestion of healing impacted fracture involving distal radius. No gross acute fracture or dislocation. Wrist joint osteoarthritic changes are seen. Soft tissues: No suspicious soft tissue calcifications or masses. IMPRESSION: Prior fixation of distal radius with healing distal radial intra-articular fracture. No gross acute fracture or dislocation. Wrist joint osteoarthritis. No gross hardware loosening or failure. Dictated by: Jad Saeed M.D. on 05/02/2024 at 12:03 Approved by: Jad Saeed M.D. on 05/02/2024 at 12:03 Extremity x-ray #3: My Impression: Deferred to official radiology report below. Radiologist's Impression: PROCEDURE: XR SHOULDER RT MIN 2V INDICATIONS: fall/pain TECHNIQUE: 3 views of the shoulder were acquired. COMPARISON: None. FINDINGS: Bones: No fractures or dislocations. Ijek-kt-zomkplzi acromioclavicular joint and glenohumeral joint osteoarthritic changes are seen. No suspicious bony lesions. Visualized ribs appear intact. Soft tissues: No suspicious soft tissue calcifications. IMPRESSION: No acute shoulder fracture or dislocation. 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 Dictated by: Jad Saeed M.D. on 05/02/2024 at 12:02 Approved by: Jad Saeed M.D. on 05/02/2024 at 12:03 [facility] Narrative Medical decision making narrative: Nondisplaced left patella fracture, she is fitted with a knee immobilizer. No fracture identified involving the right upper extremity, she has some tenderness in the proximal forearm but has full active range of motion, no deficits, likely a sprain or strain, no focal bony tenderness along the radial head, again she has good supination and pronation. She will follow up with Orthopedics regarding her patella as well as her upper extremity. She may take Tylenol or ibuprofen for pain. She may ice directly over the immobilizer, use a shower chair for safety, crutches with weightbear as tolerated. Avoid secondary fall or injury. Red flag warning signs reviewed in great detail. If she has any issues or any new worrisome symptoms she will return to the emergency department. Discharge Plan Departure Patient Disposition: Home Clinical Impression: Left patella fracture Qualifiers: Encounter type: initial encounter Fracture type: closed Fracture morphology: unspecified fracture morphology Fracture alignment: nondisplaced Qualified Code(s): S82.002A - Unspecified fracture of left patella, initial encounter for closed fracture Fall Qualifiers: Encounter type: initial encounter Qualified Code(s): W19.XXXA - Unspecified fall, initial encounter Muscle strain of right upper extremity Qualifiers: Encounter type: initial encounter Qualified Code(s): S46.911A - Strain of unspecified muscle, fascia and tendon at shoulder and upper arm level, right arm, initial encounter Instructions: DI for Patella Fracture, How to Prevent Falls, DI for Arm Pain Activity Restrictions/Additional Instructions: Please wear the knee immobilizer at all times. For showering you may remove and I recommend a shower chair for safety, then reapply the immobilizer. You will need to contact the orthopedic office for follow-up Dr. Brandon Polk [phone]. Please use the crutches, you may do weightbear as tolerated. If you feel more safe and a wheelchair there are some places in town where you can find wheelchair such as the [employer] or search for a [employer] for rental. Regarding your arm your x-ray showed no evidence of any fractures but if you have persistent pain please do get re-evaluated for this, you did take a fall and likely have some soft tissue injury such as a sprain or strain or contusion. Ice, avoid any activities that cause you pain, Tylenol ibuprofen as needed for pain. If you have any issues or any worsening or new worrisome symptoms please do return to the emergency department. Prescriptions: No Action No Known Home Medications Referrals: Toshia Moon DO [Primary Care Provider] - Stand Alone Forms: Patient Portal/API
[2024-05-02 13:08] VITALS: BP 140/86; PULSE 66; RESP 16; O2SAT 98
== END 2024-05-02 13:09 | disposition home or self-care (01) ==
PROVIDERS: Emergency Provider Physician Assistant Medical; Family Provider Family Medicine; PCP Family Medicine
DX: S82.002A Unspecified fracture of left patella, initial encounter for closed fracture (principal); S46.911A Strain of unspecified muscle, fascia and tendon at shoulder and upper arm level, right arm, initial encounter; W18.30XA Fall on same level, unspecified, initial encounter
CPT/HCPCS: 73030; 73090; 73562; 99283

== ENCOUNTER → 2024-08-16 11:57 | Outpatient (CLI) | payer MEDICARE, SELFPAY ==
[2024-08-16 13:07] LABS: BUN Creatinine Ratio 27.1 (6-22); Blood Urea Nitrogen 19 mg/dL (7-17); Calcium 9.8 mg/dL (8.4-10.2); Carbon Dioxide 21 mmol/L (22-32); Chloride 105 mmol/L (98-107); Estimated Glomerular Filt Rate > 60 mL/min (>60); Glucose 146 mg/dL (80-110); HEMOLYSIS 46 (0-50); Sodium 140 mmol/L (137-145)
== END ==
PROVIDERS: Family Provider Family Medicine; PCP Family Medicine; Referring Provider Physician Assistant; Visit Provider Physician Assistant
DX: E87.5 Hyperkalemia (principal)
CPT/HCPCS: 36415; 80048

== ENCOUNTER → 2024-08-17 14:00 | Outpatient (CLI) | payer MEDICARE, SELFPAY ==
--- NOTE | 2024-08-17 14:01 | DI.US.S_ITS ---
PROCEDURE: US ABDOMEN COMPLETE INDICATIONS: PAIN TECHNIQUE: Real-time scanning was performed of the abdominal and retroperitoneal organs, with image documentation. COMPARISON: None. FINDINGS: Liver: Liver is normal in size and increased in echogenicity. Gallbladder: Within normal limits. No gallstones or gallbladder wall thickening. Biliary ducts: Intrahepatic bile ducts are non-dilated. Extrahepatic bile duct caliber measures 4.7 mm. Normal is 6-7 mm or less in diameter, or 10 mm or less post-cholecystectomy. Pancreas: Visualized portions of the pancreas are sonographically normal. Spleen: Spleen is normal in size and homogeneous in echotexture. Kidneys: Kidneys are normal in size and echotexture. Right kidney measures 10.4 cm long; left kidney measures 8.1 cm long. No hydronephrosis or nephrolithiasis. No solid masses. Aorta: Visualized aorta is normal in caliber at less than 3 cm. Iliacs: Proximal common iliac arteries are normal in caliber at less than 2.5 cm. IVC: Intrahepatic inferior vena cava is patent. Miscellaneous: No free abdominal fluid. IMPRESSION: Liver is increased in echogenicity, most consistent with hepatic steatosis. Otherwise, no abnormalities are identified. Dictated by: Jimy Nathan M.D. on 08/18/2024 at 15:47 Approved by: Jimy Nathan M.D. on 08/18/2024 at 15:55
== END ==
PROVIDERS: Family Provider Family Medicine; PCP Family Medicine; Referring Provider Physician Assistant; Visit Provider Physician Assistant
DX: E87.5 Hyperkalemia (principal); R10.9 Unspecified abdominal pain
CPT/HCPCS: 76700

== ENCOUNTER → 2024-08-29 13:20 | Outpatient (CLI) | payer MEDICARE, SELFPAY ==
[2024-08-29 13:54] LABS: Add Manual Diff / Slide Review NO; Basophils Absolute Auto 0 /uL (0-100); Basophils Percent Auto 0.6 % (0-2); Eosinophils Absolute Auto 300 /uL (0-450); Eosinophils Percent Auto 3.5 % (2-4); Hematocrit 41.1 % (36-46); Hemoglobin 13.7 g/dL (12.0-16.0); Lymphocytes Absolute Auto 1900 /uL (1100-4500); Lymphocytes Percent Auto 23.7 % (25-40); Mean Corpuscular HGB Conc 33.4 % (30-36); Mean Corpuscular Hemoglobin 29.7 PG (26-34); Mean Corpuscular Volume 88.8 fL (80-100); Monocytes Absolute Auto 800 /uL (0-900); Monocytes Percent Auto 10.1 % (3-14); Neutrophils Absolute Auto 4900 /uL (1500-7000); Neutrophils Percent Auto 62.1 % (50-75); Platelet Count 326 X10^3/uL (150-400); Red Blood Cell Count 4.63 X10^6/uL (4.0-5.2); Red Cell Distribution Width 13.4 % (11.6-14.8); White Blood Cell Count 7.9 X10^3/uL (4.5-11.0)
[2024-08-29 14:12] LABS: Alanine Aminotransferase 20 IU/L (<35); Albumin 4.5 g/dL (3.5-5.0); Albumin Globulin Ratio 1.4 (1.0-2.8); Alkaline Phosphatase 58 U/L (38-126); Aspartate Aminotransferase 32 IU/L (14-36); BUN Creatinine Ratio 16.2 (6-22); Bilirubin Total 0.6 mg/dL (0.2-1.3); Blood Urea Nitrogen 12 mg/dL (7-17); Calcium 9.5 mg/dL (8.4-10.2); Carbon Dioxide 26 mmol/L (22-32); Chloride 105 mmol/L (98-107); Estimated Glomerular Filt Rate > 60 mL/min (>60); Globulin 3.3 g/dL (1.7-4.1); Glucose 141 mg/dL (80-110); HEMOLYSIS < 15 (0-50); Lipase 91 U/L (23-300); Potassium 3.2 mmol/L (3.4-5.1); Sodium 140 mmol/L (137-145); Total Protein 7.8 g/dL (6.3-8.2)
== END ==
PROVIDERS: Family Provider Family Medicine; PCP Family Medicine; Referring Provider Nurse Practitioner Family; Visit Provider Nurse Practitioner Family
DX: R10.9 Unspecified abdominal pain (principal)
CPT/HCPCS: 36415; 80053; 83690; 85025

== ENCOUNTER → 2024-08-30 15:09 | Outpatient (CLI) | payer MEDICARE, SELFPAY ==
--- NOTE | 2024-08-30 15:22 | DI.CT.S_ITS ---
PROCEDURE: CT ABDOMEN PELVIS W CON INDICATIONS: rt side abd pain after colonoscopy TECHNIQUE: After the administration of intravenous contrast, axial sections acquired from the lung bases to the pubic symphysis. Coronal and sagittal reformats were performed. For radiation dose reduction, the following was used: automated exposure control, adjustment of mA and/or kV according to patient size. COMPARISON: [facility], , US ABDOMEN COMPLETE, 08/17/2024, 14:20. FINDINGS: Image quality: Diagnostic. Lower Chest: Left lower lobe pulmonary nodule measuring 0.3 cm, (5/21). ABDOMEN: Liver: No solid mass. Gallbladder: No radiopaque gallstones or wall thickening. Biliary ducts: No biliary dilation. Pancreas: No ductal dilation. Spleen: Size is within normal limits. Adrenal Glands: No adrenal nodules. Kidneys and Ureters: No hydronephrosis. No solid mass. No complex renal cystic lesion which requires follow up. Stomach and Bowel: No diverticulitis. Normal appendix. Prominent stool in the cecum. No small bowel obstruction. The stomach is within normal limits. Peritoneum: No abnormal intraperitoneal fluid. No free air. Ventral Wall: No significant ventral hernia. Abdominal Nodes: No retroperitoneal or mesenteric adenopathy by size criteria. Vessels: Aorta and inferior vena cava are normal in size. PELVIS: Pelvic Organs: Postmenopausal anteverted uterus. Probable calcified fibroids. Bladder: No bladder wall thickening. Pelvic Nodes: No enlarged lymph nodes. Miscellaneous: No inguinal hernias are seen. Bones: No aggressive osseous abnormality. Scoliosis. Multilevel DDD. IMPRESSION: 1. No pneumoperitoneum. No fluid collection. 2. Prominent stool in the cecum. 3. Normal appendix. Dictated by: Randy Gonzales M.D. on 08/30/2024 at 19:40 Approved by: Randy Gonzales M.D. on 08/30/2024 at 19:50
== END ==
PROVIDERS: Family Provider Family Medicine; PCP Family Medicine; Referring Provider Nurse Practitioner Family; Visit Provider Nurse Practitioner Family
DX: R10.9 Unspecified abdominal pain (principal); R91.1 Solitary pulmonary nodule
CPT/HCPCS: 74177; Q9967

== ENCOUNTER → 2024-12-20 13:52 | Outpatient (CLI) | payer MEDICARE, SELFPAY ==
[2024-12-20 15:07] LABS: Hemoglobin A1C% w Est Avg Glu 5.4 % (4.0-6.0)
[2024-12-20 15:18] LABS: Alanine Aminotransferase 15 IU/L (<35); Albumin 4.9 g/dL (3.5-5.0); Albumin Globulin Ratio 1.4 (1.0-2.8); Alkaline Phosphatase 65 U/L (38-126); Aspartate Aminotransferase 29 IU/L (14-36); BUN Creatinine Ratio 17.1 (6-22); Bilirubin Total 0.6 mg/dL (0.2-1.3); Blood Urea Nitrogen 13 mg/dL (7-17); Calcium 9.9 mg/dL (8.4-10.2); Carbon Dioxide 29 mmol/L (22-32); Chloride 101 mmol/L (98-107); Estimated Glomerular Filt Rate > 60 mL/min (>60); Globulin 3.4 g/dL (1.7-4.1); Glucose 83 mg/dL (70-99); HEMOLYSIS < 15 (0-50); Sodium 139 mmol/L (137-145); Total Protein 8.3 g/dL (6.3-8.2)
[2024-12-20 15:54] LABS: Ferritin 47 ng/mL (11-264); TSH w/ Reflex to FT4 4.73 uIU/mL (0.47-4.68)
[2024-12-20 16:32] LABS: Free T4, Direct Thyroxine 0.89 ng/dL (0.78-2.19)
[2024-12-28 09:41] LABS: 1,25-Dihydroxy, Vitamin D-2 <10 pg/mL (.)
== END ==
PROVIDERS: Family Provider Family Medicine; PCP Family Medicine; Referring Provider Family Medicine; Visit Provider Family Medicine
DX: E03.8 Other specified hypothyroidism (principal); R53.83 Other fatigue; R40.0 Somnolence; Z13.228 Encounter for screening for other metabolic disorders; M81.0 Age-related osteoporosis without current pathological fracture; R73.03 Prediabetes; R79.89 Other specified abnormal findings of blood chemistry; E55.9 Vitamin D deficiency, unspecified
CPT/HCPCS: 36415; 80053; 82652; 82728; 83036; 84439; 84443

== ENCOUNTER → 2025-02-14 12:44 | Outpatient (CLI) | payer MEDICARE, SELFPAY ==
[2025-02-16 22:07] LABS: ANA Screen, IFA Negative (.)
== END ==
PROVIDERS: Family Provider Family Medicine; PCP Family Medicine; Referring Provider Dermatology; Visit Provider Dermatology
DX: L23.9 Allergic contact dermatitis, unspecified cause (principal)
CPT/HCPCS: 36415; 86038

== ENCOUNTER → 2025-06-20 06:56 | Outpatient (CLI) | payer MEDICARE, SELFPAY ==
[2025-06-20 07:25] LABS: Appearance Urine UA CLEAR; Bilirubin Urine UA NEGATIVE (NEGATIVE); Color Urine UA YELLOW; Glucose Urine UA NEGATIVE (Negative); Ketones Urine UA NEGATIVE (NEGATIVE); Leukocyte Esterase Urine UA NEGATIVE (NEGATIVE); Nitrite Urine UA NEGATIVE (Negative); Occult Blood Urine UA TRACE-INTACT (Negative); Protein Urine UA NEGATIVE (Negative); Specific Gravity Urine UA 1.025 (1.000-1.035); Urobilinogen Urine UA 0.2 E.U./dL (0.2)
[2025-06-20 07:43] LABS: pH Urine UA 5.5 (4.5-8.0)
[2025-06-20 08:20] LABS: Iron 113 ug/dL (37-170)
[2025-06-20 08:21] LABS: Cholesterol 198 mg/dL (140-199); HDL Cholesterol 77 mg/dL (40-60); Triglycerides 95 mg/dL (35-150)
[2025-06-20 08:52] LABS: TSH w/ Reflex to FT4 4.48 uIU/mL (0.47-4.68)
== END ==
PROVIDERS: Nurse Practitioner Family; Family Provider Family Medicine; PCP Family Medicine; Referring Provider Family Medicine; Visit Provider Family Medicine
DX: R21 Rash and other nonspecific skin eruption (principal); E78.00 Pure hypercholesterolemia, unspecified; E03.8 Other specified hypothyroidism; R10.9 Unspecified abdominal pain
CPT/HCPCS: 36415; 80061; 81003; 83540; 84443

== ENCOUNTER → 2025-06-21 19:16 | Outpatient (ROUT) | payer MEDICARE, SELFPAY | PROVIDERS: Family Provider Family Medicine; PCP Family Medicine | DX: L03.90 Cellulitis, unspecified (principal); Z79.899 Other long term (current) drug therapy | CPT/HCPCS: 87070; 87075; 87205 ==

== ENCOUNTER → 2025-06-27 08:38 | Outpatient (CLI) | payer MEDICARE, SELFPAY | PROVIDERS: Family Provider Family Medicine; PCP Family Medicine; Referring Provider Physician Assistant; Visit Provider Surgery | DX: L97.822 Non-pressure chronic ulcer of other part of left lower leg with fat layer exposed (principal); L53.9 Erythematous condition, unspecified; S81.802S Unspecified open wound, left lower leg, sequela; I10 Essential (primary) hypertension; L30.9 Dermatitis, unspecified | CPT/HCPCS: 11042; 99213 ==

== ENCOUNTER → 2025-07-01 10:17 | Outpatient (CLI) | payer MEDICARE, SELFPAY | LOC: WC 10:18 | PROVIDERS: Family Provider Family Medicine; PCP Family Medicine; Referring Provider Family Medicine; Visit Provider Surgery | DX: L97.822 Non-pressure chronic ulcer of other part of left lower leg with fat layer exposed (principal); L53.8 Other specified erythematous conditions | CPT/HCPCS: 11042 ==

== ENCOUNTER → 2025-07-08 14:55 | Outpatient (CLI) | payer MEDICARE, SELFPAY | LOC: WC 14:56 | PROVIDERS: Family Provider Family Medicine; PCP Family Medicine; Referring Provider Family Medicine; Visit Provider Surgery | DX: L59.8 Other specified disorders of the skin and subcutaneous tissue related to radiation (principal); S81.802A Unspecified open wound, left lower leg, initial encounter; Z85.828 Personal history of other malignant neoplasm of skin; L53.8 Other specified erythematous conditions | CPT/HCPCS: 11042 ==

== ENCOUNTER → 2025-07-15 14:23 | Outpatient (CLI) | payer MEDICARE, SELFPAY | LOC: WC 14:31 | PROVIDERS: Family Provider Family Medicine; PCP Family Medicine; Referring Provider Family Medicine; Visit Provider Surgery | DX: L97.822 Non-pressure chronic ulcer of other part of left lower leg with fat layer exposed (principal); L53.8 Other specified erythematous conditions | CPT/HCPCS: 11042 ==